=== PATIENT | female | born 1955 | race Caucasian/White ===

== ENCOUNTER 2016-07-15 09:32 | Emergency (ER) | payer BC ==
--- NOTE | 2016-07-15 11:25 | UC ---
Throat Pain/Nasal Josue HPI - HPI Summary HPI Summary: nasal congestion for 2d, low-grade fevers, malaise, fatigue, dry cough, PND. Had sinus surgery last year. - History of Current Complaint Chief Complaint: UCRespiratory Stated Complaint: SINUS COMPLAINT Time Seen by Provider: 07/15/16 10:55 Hx Obtained From: Patient Hx Last Menstrual Period: Age 51 Onset/Duration: Gradual Onset, Lasting Days - 2 Severity: Moderate Cough: Nonproductive Associated Signs & Symptoms: Positive: Dysphagia - mild, Hoarseness, Sinus Discomfort, Nasal Discharge - Epiglottits Risk Factors Epiglottis Risk Factors: Negative - Allergies/Home Medications Allergies/Adverse Reactions: Allergies Allergy/AdvReac Type Severity Reaction Status Date / Time Sulfa Drugs Allergy Intermediate Hives Verified 07/15/16 10:58 Adhesive Tape Allergy Rash And Verified 07/15/16 10:59 Itching Home Medications: Home Medications Cholecalciferol [Vitamin D] 1,000 unit PO BID 07/15/16 [History Confirmed ] Coconut Oil [Eql Coconut Oil] 1,000 mg PO TID 07/15/16 [History Confirmed ] Ibuprofen TAB* [Advil TAB*] 200 mg PO Q6H PRN 07/15/16 [History Confirmed ] Metoprolol Succinate XL TAB* [Toprol XL TAB*] 12.5 mg PO DAILY 07/15/16 [ History Confirmed 07/15/16] PMH/Surg Hx/FS Hx/Imm Hx - Additional Past Medical History Additional PMH: sinus surgery last year for recurrent infections - Surgical History Surgical History: Yes Surgery Procedure, Year, and Place: L carpel tunnel; fistula; arm fx right - Social History Occupation: Employed Full-time Lives: With Family Alcohol Use: None Substance Use Type: None Smoking Status (MU): Never Smoked Tobacco Review of Systems Constitutional: Fever, Fatigue Skin: Negative Eyes: Negative ENT: Sore Throat, Ear Ache, Nasal Discharge Respiratory: Cough - mild, dry Cardiovascular: Negative Gastrointestinal: Negative Genitourinary: Negative Motor: Negative Neurovascular: Negative Musculoskeletal: Negative Neurological: Negative Psychological: Negative All Other Systems Reviewed And Are Negative: Yes Physical Exam Triage Information Reviewed: Yes Appearance: Well-Appearing, No Pain Distress, Well-Nourished, Thin Vital Signs: Initial Vital Signs Temp 100.5 F 07/15/16 10:51 Pulse 86 07/15/16 10:51 Resp 20 07/15/16 10:51 BP 105/90 07/15/16 10:51 Pulse Ox 99 07/15/16 10:51 Vital Signs Reviewed: Yes Eye Exam: Normal Eyes: Positive: Conjunctiva Clear ENT: Positive: Hearing grossly normal, Pharyngeal erythema - mild, Nasal congestion, TMs normal. Negative: Trismus, Muffled/hoarse voice Neck exam: Normal Neck: Positive: Supple, Nontender Respiratory Exam: Normal Respiratory: Positive: Lungs clear, Normal breath sounds, No respiratory distress, No accessory muscle use Cardiovascular: Positive: RRR, No Murmur Musculoskeletal Exam: Normal Neurological Exam: Normal Psychological Exam: Normal Skin Exam: Normal Throat Pain/Nasal Course/Dx - Differential Dx/Diagnosis Differential Diagnosis/HQI/PQRI: Pharyngitis, Sinusitis, URI Provider Diagnoses: URI Discharge - Discharge Plan Condition: Stable Disposition: HOME Prescriptions: Cephalexin CAP* [Keflex CAP*] 500 mg PO TID #30 cap Guaifenesin-Codeine [Cheratussin AC] 1 - 2 teasp PO Q6HR PRN #120 ml MDD 30ml PRN Reason: Cough Oxymetazoline HCl [Afrin Nasal [place]] 0.05 % NA BID PRN #1 bottle PRN Reason: nasal congestion Patient Education Materials: Upper Respiratory Infection (ED) Referrals: Ashanti Duggan [Primary Care Provider] - Additional Instructions: If your sinus symptoms worsen, with fever beyond 4 or 5 days of illness, start the antibiotic
[2016-07-15 11:29] VITALS: BP 122/87
== END 2016-07-15 11:29 | disposition home or self-care (01) ==
LOC: UCCORT 09:32
DX: J06.9 Acute upper respiratory infection, unspecified (principal); R09.81 Nasal congestion; R50.9 Fever, unspecified; R53.83 Other fatigue; R13.10 Dysphagia, unspecified; H92.09 Otalgia, unspecified ear; Z88.2 Allergy status to sulfonamides; Z91.048 Other nonmedicinal substance allergy status
CPT/HCPCS: 99202; G0463

== ENCOUNTER 2017-07-14 07:27 | Emergency (ER) | payer BC ==
[2017-07-14 07:54] VITALS: BP 116/79
--- NOTE | 2017-07-14 08:52 | UC ---
Eye Complaint HPI - HPI Summary HPI Summary: 2 day history of eye drainage and burning sensation, mild blurring, no photophobia. 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 Sinus headache and pressure x weeks,with past hx of sinus surgery. NO recent treatment of sinusitis. Has mild ear pressure. In past, sinus infections best relieved with zpack. - History of Current Complaint Chief Complaint: UCEye Stated Complaint: EYE COMPLAINT-BOTH Time Seen by Provider: 07/14/17 08:41 Hx Obtained From: Patient Hx Last Menstrual Period: Age 51 ?: No Onset/Duration: Gradual Onset Timing: Constant Pain Intensity: 4 Location of Injury: Conjunctiva Character: Dull - burning Aggravating Factor(s): Nothing Alleviating Factor(s): Nothing Associated Signs And Symptoms: Positive: Drainage (Purulent) - scant - Risk Factors Penetrating Injury Risk Factor: Negative Globe Rupture Risk Factors: Negative Acute Glaucoma Risk Factors: Negative - Allergies/Home Medications Allergies/Adverse Reactions: Allergies Allergy/AdvReac Type Severity Reaction Status Date / Time Adhesive Tape Allergy Rash And Verified 07/14/17 07:47 Itching Sulfa (Sulfonamide Allergy Hives Verified 07/14/17 07:47 Antibiotics) PMH/Surg Hx/FS Hx/Imm Hx - Additional Past Medical History Additional PMH: fibromyalgia Cardiovascular History: Other - palpitations, on suppressive metoprolol; hx of elevated cholesterol Other Cardiovascular History: heart palpitations, high cholesterol GI/ History: Gastroesophageal Reflux - Surgical History Surgical History: Yes Surgery Procedure, Year, and Place: L carpel tunnel; fistula; arm fx right, left trigger thumb - Family History Known Family History: Positive: Cardiac Disease - mother, siblings., Hypertension, Diabetes, Other - mother has vascular dementia. - Social History Occupation: Employed Full-time Alcohol Use: None Substance Use Type: None Smoking Status (MU): Never Smoked Tobacco Review of Systems Constitutional: Fatigue Skin: Negative Eyes: Blurred Vision - mild blurred vision, clears with blinking. ENT: Nasal Discharge, Sinus Pain/Tenderness Respiratory: Negative - no cough Cardiovascular: Negative Gastrointestinal: Negative Genitourinary: Negative Motor: Negative Neurovascular: Negative Musculoskeletal: Negative Neurological: Negative Psychological: Negative Is Patient Immunocompromised?: No All Other Systems Reviewed And Are Negative: Yes Physical Exam Triage Information Reviewed: Yes Appearance: Well-Appearing, Pain Distress - mild Vital Signs: Initial Vital Signs Temp 99.2 F 07/14/17 07:47 Pulse 78 07/14/17 07:47 BP 116/79 07/14/17 07:47 Pulse Ox 100 07/14/17 07:47 Vital Signs Reviewed: Yes Eyes: Positive: Conjunctiva Inflamed - right eye more than left, scant drainage , mild lid swelling Neck: Positive: Supple, Nontender, Enlarged Nodes @ - small anterior cervical nodes. Respiratory: Positive: Lungs clear, Normal breath sounds Cardiovascular: Positive: RRR, No Murmur Musculoskeletal Exam: Normal Neurological: Positive: Alert, Muscle Tone Normal Psychological Exam: Normal Skin Exam: Normal Eye Complaint Course/Dx - Course Course Of Treatment: conjunctivitis, bilateral; subacute pansinusits. Will treat with antibiotic eye drops and antibiotic - Differential Dx/Diagnosis Differential Diagnosis/HQI/PQRI: Conjunctivitis, Corneal Abrasion, Uveitis Provider Diagnoses: conjuncitivitis; bacterial sinusitis. Discharge - Discharge Plan Condition: Stable Disposition: HOME Prescriptions: Azithromyxin AMANDEEP (NF) [Z-Amandeep (Zithromax) 250 mg tabs #6] 2 tab PO .TODAY, THEN 1 DAILY #6 tab Polymyx/Trimethoprim OPTH* [Polytrim OPHTH*] 2 drop BOTH EYES Q3H #1 btl Referrals: Ca Ballard PA [Primary Care Provider] - Additional Instructions: Hot compress your eyes today before using the drops for additional relief. Use drops every 3 hours today, then 4 times daily for 5 days; follow up with Dr. Miller if you do not have relief in 2 days. Begin azithromycin for relief of back pain.
== END 2017-07-14 09:46 | disposition home or self-care (01) ==
LOC: UCCORT 07:27
DX: H10.9 Unspecified conjunctivitis (principal); J32.8 Other chronic sinusitis; Z88.1 Allergy status to other antibiotic agents; Z91.09 Other allergy status, other than to drugs and biological substances; B96.89 Other specified bacterial agents as the cause of diseases classified elsewhere
CPT/HCPCS: 99212; G0463